=== PATIENT | female | born 2000 | race Caucasian/White ===

== ENCOUNTER 2023-06-19 10:07 | Emergency (ER) | payer BC ==
[~2023-06-19] VITALS: Ht 160 cm; Wt 63.6 kg
[2023-06-19] MEDS ORDERED: Ibuprofen 400 MG TAB PO ONE (10:30)
[2023-06-19 12:57] VITALS: BP 108/75; PULSE 99; TEMP 99.8
== END 2023-06-19 12:58 | disposition home or self-care (01) ==
LOC: COL.ER 10:07
DX: J10.1 Influenza due to other identified influenza virus with other respiratory manifestations (principal); R19.7 Diarrhea, unspecified; R00.0 Tachycardia, unspecified